=== PATIENT | male | born 1980 | race Caucasian/White ===

== ENCOUNTER → 2017-08-20 | Outpatient (CLI) | payer OTHER ==
[~2017-08-20] MED LIST: HYDROCORTISONE1.5 GM BOTHEYES; Hair, Skin & N1 EACH PO; KETO15TC TOP; Pepcid20 MG PO; Vitamin D400 UNI1 PO
[2017-08-20 13:36] LABS: BASOPHILS ABSOLUTE AUTO 0.02 K/mm3 (0.00-0.23); BASOPHILS PERCENT AUTO 0 % (0-2); EOSINOPHILS ABSOLUTE AUTO 0.12 K/mm3 (0.00-0.68); EOSINOPHILS PERCENT AUTO 2 % (0-6); Hematocrit 45.7 % (37.0-53.0); Hemoglobin 16.3 g/dL (13.5-17.5); IMMATURE GRAN ABSOLUTE AUTO 0.01 K/mm3 (0.00-0.10); IMMATURE GRAN PERCENT AUTO 0 % (0-1); LYMPHOCYTES ABSOLUTE AUTO 1.96 K/mm3 (0.84-5.20); LYMPHOCYTES PERCENT AUTO 35 % (21-46); MONOCYTES ABSOLUTE AUTO 0.39 K/mm3 (0.16-1.47); MONOCYTES PERCENT AUTO 7 % (4-13); Mean Corpuscular HGB 30.6 pg (26.0-34.0); Mean Corpuscular HGB Conc 35.7 g/dL (31.5-36.5); Mean Corpuscular Volume 86 fL (80-100); Mean Platelet Volume 8.3 fL (9.1-12.4); NEUTROPHILS ABSOLUTE AUTO 3.04 K/mm3 (1.96-9.15); NEUTROPHILS PERCENT AUTO 55 % (41-73); Platelet Count 278 K/mm3 (150-400); RDW Coefficient Variation 11.7 % (11.7-14.2); RDW Standard Deviation 36.4 fL (35.1-46.3); Red Blood Cell Count 5.33 M/mm3 (4.30-5.90); White Blood Cell Count 5.54 K/mm3 (4.00-11.30)
[2017-08-20 13:49] LABS: Prothrombin Time Results 10.4 Sec (9.7-11.5)
== END | disposition home or self-care (01) ==
LOC: OLS 11:55
PROVIDERS: Urology
DX: N28.89 Other specified disorders of kidney and ureter (principal)
CPT/HCPCS: 36415; 85025; 85610; 85730

== ENCOUNTER 2017-08-21 09:24 | Day surgery (SDC) | payer OTHER | END 2017-08-21 22:46 | disposition home or self-care (01) | LOC: CT 09:24 | PROVIDERS: Radiology Diagnostic Radiology | PROC: 0TB13ZX Excision of Left Kidney, Percutaneous Approach, Diagnostic (ICD-10-PCS; principal; 2017-08-21 11:00) | DX: C64.2 Malignant neoplasm of left kidney, except renal pelvis (principal); I10 Essential (primary) hypertension | CPT/HCPCS: 50200; 77012; 88305; Q9967 ==